=== PATIENT | male | born 1955 | race Caucasian/White ===

== ENCOUNTER → 2025-04-10 12:35 | Outpatient (REF) | payer MEDICARE, SELFPAY | LOC: HWRCS 12:35 | PROVIDERS: ATTENDING PHYSICIAN Internal Medicine Cardiovascular Disease; FAMILY PHYSICIAN Family Medicine | DX: R01.1 Cardiac murmur, unspecified (principal); I34.81 Nonrheumatic mitral (valve) annulus calcification; I35.0 Nonrheumatic aortic (valve) stenosis | CPT/HCPCS: 93306 ==